=== PATIENT | female | born 1960 | race Caucasian/White ===

== ENCOUNTER 2024-10-10 20:25 | Emergency (ER) | payer OTHER, SELFPAY ==
--- NOTE | ~2024-10-10 | XR_ITS ---
XR chest 2V Ordering provider: Philippe Rodriguez MD History: 64 years Female with . CHEST PAIN . Comparison: None. FINDINGS: MEDIASTINUM: The cardiac silhouette is not enlarged. LUNGS: No infiltrates, effusions or pneumothorax. OTHER: No free air under the diaphragm. IMPRESSION: No acute cardiopulmonary pathology. Reviewed, dictated and finalized at location A.
--- NOTE | 2024-10-10 20:26 | ECG_ITS ---
Test Date: 2024-10-10 20:34:11 Measurements Intervals [place] Rate: 76 P: 23 SC: 172 QRS: -2 QRSD: 88 T: 47 QT: 375 QTc: 424 Interpretive Statements SINUS RHYTHM VOLTAGE CRITERIA FOR LVH MINIMAL Q WAVES- HIGH LATERAL LEADS BORDERLINE ECG No previous ECG available for comparison Electronically Signed On 10-11-2024 07:07:30 CDT by Michele Ochoa D.O.
[2024-10-10 20:48] VITALS: BP 131/80; PULSE 81; RESP 18; TEMP 36.4; O2SAT 97
[2024-10-10 20:50] LABS: Basophils Absolute Auto 0.1 K/mm3 (0.0-0.1); Basophils Percent Auto 0.7 % (0.2-1.2); Eosinophils Absolute Auto 0.2 K/mm3 (0-0.3); Eosinophils Percent Auto 2.7 % (0-4.4); Hematocrit 45.3 % (37.0-47.0); Hemoglobin 14.7 g/dL (12.0-15.0); Immature Granulocyte Absolute 0.04 K/mm3 (0.00-0.031); Immature Granulocyte Percent A 0.5 % (0-0.5); Lymphocytes Absolute Auto 2.57 K/mm3 (0.9-3.2); Lymphocytes Percent Auto 29.6 % (18.3-44.2); Mean Corpuscular HGB Conc 32.5 g/dl (32-36); Mean Corpuscular Volume 95.6 fl (80-100); Mean Platelet Volume 8.9 fl (7.4-10.4); Monocytes Absolute Auto 0.5 K/mm3 (0.1-0.6); Monocytes Percent Auto 6.2 % (2.6-8.5); Neutrophils Absolute Auto 5.2 K/mm3 (1.3-6.7); Neutrophils Percent Auto 60.3 % (45.5-73.1); Platelet Count Result 277 k/mm3 (150-375); Red Blood Count 4.74 M/mm3 (4.2-5.4); Red Cell Distribution Width 13.2 % (11.5-14.5); White Blood Count 8.7 K/mm3 (4.5-10.0)
[2024-10-10 21:01] LABS: Alanine Aminotransferase 23 U/L (6-35); Albumin Level 4.2 g/dL (3.5-5.1); Alkaline Phosphatase 72 U/L (38-126); Anion Gap 9 mmol/L (4-12); Aspartate Amino Transferase 30 U/L (14-36); Bilirubin,Total 0.3 mg/dL (0.2-1.3); Blood Urea Nitrogen 15 mg/dL (7-17); Calcium 9.2 mg/dL (8.4-10.2); Carbon Dioxide 22 mmol/L (22-30); Chloride 108 mmol/L (98-107); Estimated CRCL calculation 67 ml/min; Estimated Glomerular Filt Rate > 60; Glucose 145 mg/dL (65-110); Lipase 77 U/L (23-300); Potassium 3.5 mmol/L (3.4-5.0); Sodium 139 mmol/L (137-145); Total Protein 7.2 g/dL (6.3-8.2)
[2024-10-10 21:03] LABS: Prothrombin Time 13.5 Seconds (11.1-14.7)
[2024-10-10 21:04] LABS: Partial Thromboplastin Time 27.4 Seconds (22.3-36.8)
[2024-10-10 21:12] LABS: Troponin I < 0.012 ng/mL (0.000-0.034)
[2024-10-10 23:41] VITALS: BP 113/86; PULSE 73; RESP 24; O2SAT 97
[2024-10-10 23:48] LABS: Troponin I < 0.012 ng/mL (0.000-0.034)
--- NOTE | 2024-10-11 | ECG_ITS ---
Test Date: 2024-10-11 00:02:01 Measurements Intervals [place] Rate: 69 P: 3 NC: 172 QRS: 0 QRSD: 88 T: 25 QT: 409 QTc: 440 Interpretive Statements SINUS RHYTHM VOLTAGE CRITERIA FOR LVH MINIMAL Q WAVES- HIGH LATERAL LEADS BORDERLINE ECG Compared to ECG 10/10/2024 20:34:11 No significant changes Electronically Signed On 10-11-2024 07:07:10 CDT by Michele Ochoa D.O.
--- NOTE | 2024-10-11 00:10 | ED_ITS ---
HPI - General Adult General Chief complaint: Chest Pain Stated complaint: Chest pain, knee pain Time Seen by Provider: 10/10/24 22:58 History of Present Illness HPI narrative: Patient is 64-year-old female presents emergency department with chief complaint of chest pain. Patient reports that for the last weeks she has been having discomfort in her chest patient states that the pain moved to the left side of her chest and was told that previously she had possible blockages in her heart but has not had a cardiac catheterization and not had any stent placement. 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 Nursing and ancillary documentation was reviewed. Exam 2 Narrative: GENERAL: Well-appearing, well-nourished, and in no acute distress. HEAD: Normocephalic, atraumatic. EYES: PERRLA and EOMI. ENT: Nares clear, no rhinorrhea or epistaxis. Mucous membranes moist. NECK: Supple. CHEST: Clear to auscultation. No respiratory distress. HEART: Regular rate and rhythm. No murmur heard. Normal peripheral pulses. ABDOMEN: Soft, nontender, nondistended, normal active bowel sounds. EXTREMITIES: Normal range of motion. No edema. SKIN: Warm, dry, no rash. NEURO: No focal deficits. Alert and oriented x3. PSYCH: Normal mood and affect. Course Vital Signs Vital signs: Vital Signs Temperature 36.4 C 10/10/24 20:48 Pulse Rate 81 10/10/24 20:48 Respiratory Rate 18 10/10/24 20:48 Blood Pressure 131/80 10/10/24 20:48 Pulse Oximetry 97 10/10/24 20:48 Oxygen Delivery Room Air 10/10/24 20:48 Temperature 36.4 C 10/10/24 20:48 Pulse Rate 73 10/10/24 23:41 Respiratory Rate 24 H 10/10/24 23:41 Blood Pressure 113/86 10/10/24 23:41 Pulse Oximetry 97 10/10/24 23:41 Oxygen Delivery Room Air 10/10/24 20:48 Medical Decision Making MDM Narrative Medical decision making narrative: Differential diagnosis includes ACS, atypical chest pain, pneumonia, Patient is not tachycardic not hypoxic CBC was within normal limits electrolytes were normal troponin was 0 hour and 3 hour lipase was normal Vital Signs Vital Signs: Vital Signs Temperature 36.4 C 10/10/24 20:48 Pulse Rate 81 10/10/24 20:48 Respiratory Rate 18 10/10/24 20:48 Blood Pressure 131/80 10/10/24 20:48 Pulse Oximetry 97 10/10/24 20:48 Oxygen Delivery Room Air 10/10/24 20:48 Temperature 36.4 C 10/10/24 20:48 Pulse Rate 73 10/10/24 23:41 Respiratory Rate 24 H 10/10/24 23:41 Blood Pressure 113/86 10/10/24 23:41 Pulse Oximetry 97 10/10/24 23:41 Oxygen Delivery Room Air 10/10/24 20:48 Lab Data 10/10/24 20:41 10/10/24 20:41 Labs: Lab Results 10/10/24 10/10/24 Range/Units 20:41 23:22 WBC 8.7 (4.5-10.0) K/mm3 RBC 4.74 (4.2-5.4) M/mm3 Hgb 14.7 (12.0-15.0) g/dL Hct 45.3 (37.0-47.0) % MCV 95.6 (80-100) fl MCH 31.0 (26-34) pg MCHC 32.5 (32-36) g/dl RDW 13.2 (11.5-14.5) % Plt Count 277 (150-375) k/mm3 MPV 8.9 (7.4-10.4) fl Immature Gran % (Auto) 0.5 (0-0.5) % Neut % (Auto) 60.3 (45.5-73.1) % Lymph % (Auto) 29.6 (18.3-44.2) % [place] % (Auto) 6.2 (2.6-8.5) % Eos % (Auto) 2.7 (0-4.4) % Baso % (Auto) 0.7 (0.2-1.2) % Lymph # (Auto) 2.57 (0.9-3.2) K/mm3 [place] # (Auto) 0.5 (0.1-0.6) K/mm3 Eos # (Auto) 0.2 (0-0.3) K/mm3 Baso # (Auto) 0.1 (0.0-0.1) K/mm3 Abs Immat Gran (auto) 0.04 H (0.00-0.031) K/mm3 Absolute Neuts (auto) 5.2 (1.3-6.7) K/mm3 Absolute Nucleated RBC 0.000 (0.0-0.012) K/mm3 Nucleated RBC % 0.0 (0.0-0.2) % PT 13.5 (11.1-14.7) Seconds INR 1.0 APTT 27.4 (22.3-36.8) Seconds Sodium 139 (137-145) mmol/L Potassium 3.5 (3.4-5.0) mmol/L Chloride 108 H (98-107) mmol/L Carbon Dioxide 22 (22-30) mmol/L Anion Gap 9 (4-12) mmol/L BUN 15 (7-17) mg/dL Creatinine 0.63 L (0.7-1.0) mg/dL Estim Creat Clear Calc 67 ml/min Estimated GFR > 60 (59 - ) Glucose 145 H (65-110) mg/dL Calcium 9.2 (8.4-10.2) mg/dL Total Bilirubin 0.3 (0.2-1.3) mg/dL AST 30 (14-36) U/L ALT 23 (6-35) U/L Alkaline Phosphatase 72 (38-126) U/L Troponin I < 0.012 < 0.012 (0.000-0.034) ng/mL Total Protein 7.2 (6.3-8.2) g/dL Albumin 4.2 (3.5-5.1) g/dL Lipase 77 (23-300) U/L Discharge Plan Discharge Clinical Impression: Atypical chest pain Patient Disposition: Home Condition: Stable Instructions: Antibiotic Form, Chest Pain (ED) Patient Language: Lithuanian Follow-up/Referrals: Ketty Koenig [Other] Time of Disposition: 00:13 Quality HEART score for chest pain patients History: slightly suspicious ECG: normal Age: > 45 and < 65 years Risk factors: 1 or 2 risk factors Troponin: < or = to 1x normal limit Heart score: 2
== END 2024-10-11 00:42 | disposition home or self-care (01) ==
PROVIDERS: Emergency Provider Emergency Medicine
DX: R07.89 Other chest pain (principal)
CPT/HCPCS: 36415; 71046; 80053; 83690; 84484; 85025; 85610; 85730; 93005; 99284